=== PATIENT | male | born 1955 | race Caucasian/White ===

== ENCOUNTER 2020-10-11 19:03 | Emergency (ER) | payer BC ==
--- NOTE | 2020-10-11 19:28 | EDM.PDOC ---
ED HPI GENERAL MEDICAL PROBLEM - General Chief Complaint: CPR in Progress Stated Complaint: [facility] Time Seen by Provider: 10/11/20 19:03 Source of Information: Reports: EMS History Limitations: Reports: Other (cardiac arrest.) - History of Present Illness INITIAL COMMENTS - FREE TEXT/NARRATIVE: 65-year-old male presents to the ED with CPR in progress. The history suggest that he had come home from work at approximately 730 and 30 hours. He did not complain of any chest pain to his . She reports he has developed cold symptoms with sinus congestion over the last 48 hours. No notable cough or fever or chills reported. Patient went into the bathroom and heard him fall to the floor. This occurred at approximately 1810 hrs. When she attended him in the bathroom he was looking up at her and she thinks was making eye contact although he was never able to verbalize. She reports that he took a few gasps of air and this is when she called 911. Paramedics apparently were on scene within 3 to 4 minutes. They started CPR as he recognized that he was pulseless and not breathing. He was found to be in ventricular fibrillation and he required defibrillation x4. Unfortunately during this timeframe he slipped into asystole. Patient was intubated with good air entry to both lung zepeda on Ambu bag compression. Vitaly device in place. Arrival at the hospital was approximately 1753 hrs. It took a bit of time to get his name and therefore a delay in actually having a chart. I.e. he was pronounced before the chart was available. On examination good air entry to both lung zepeda on compression of the Ambu bag recognize. Tube in good position. Vitaly device was stopped and the patient was identified to be in asystole. Paramedics indicate that they had been working on them for 45 minutes. He had been in asystole for greater than 10 minutes. Decision made to call the code and time of is 1900 hrs. 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 The history however of nasal congestion for the last 2 days is suspicious for possible COVID-19 illness. A COVID-19 screen will be carried out on this patient so the family knows for sure whether or not he had underlying illness that may contribute to his sudden due to hypercoagulation. Studies suggest that he has chronic underlying hypertension and is not sure how compliant he was with medications. He has no history of diabetes. No history of alcoholism. No past history our charts are available from this fellow being seen in the ED prior. 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 Of appears to be obvious and there is no evidence of foul play. Family was not keen on pursuing an autopsy at this time. Cause of felt to be myocardial infarction with malignant arrhythmia causing sudden . Onset: Today, Sudden Onset Date: 10/11/20 Onset Time: 18:06 Duration: Minutes: Location: Reports: Other (Patient presents to the ED with CPR in progress.) Severity: Severe Improves with: Reports: None Worsens with: Reports: None Context: Reports: Other (Sudden loss of consciousness and fall to the floor in the bathroom at home. Identified to be pulseless and not breathing when paramedics arrived. Monitor revealed shockable rhythm with ventricular fibrillation. He did receive defibrillation x4 and was intubated. Patient then went into asystole and therefore Vitaly device was placed and patient transported to the hospital. It was estimated that he had been in asystole for between 12 and 16 minutes before arrival in the ED. Perhaps even longer.). Denies: Activity, Exercise, Lifting, Sick Contact, Trauma Associated Symptoms: Reports: Other (Sudden ) Treatments RN INTEGRITY: Reports: See EMS Report, Other (see below) (CPR in progress upon arrival as mentioned above. See the chief complaint.) Past Medical History Cardiovascular History: Reports: Hypertension (Chronic essential hypertension. reports that he was been on medication for about 10 years.) ED ROS GENERAL - Review of Systems Review Of Systems: Unable To Obtain Reason Not Obtained: Patient arrived in the ED with no pulse and no respirations . ED EXAM, CPR - Physical Exam Exam: See Below Limited By: Unresponsive General Appearance: Severe Distress, Other (Waxy /cyanotic discoloration base upper chest and extremities.) Eye Exam: Bilateral Eye: Other (Pupils were dilated to 7 mm and unresponsive to light in either eye.) Throat/Mouth: Other (Endotracheal tube in the oropharynx with good air entry to both lung zepeda on auscultation with Ambu bag compression) Head: Atraumatic, Normocephalic, Other (No outward signs of head or facial trauma.) Respiratory Chest: Other (No spontaneous respirations) Cardiovascular: Absent Heart Sounds, CPR In Progress. No: Pulse with Compression Extremities: Other (Few sacral cyanosis upper and lower extremities) Neurological: Unresponsive Skin Exam: Cool Course - Orders/Labs/Meds Labs: Laboratory Tests 10/11/20 Range/Units 19:10 SARS-CoV-2 RNA (YON) Negative (NEGATIVE) - Radiology Interpretation Free Text/Narrative:: 65-year-old male presents to the ED with CPR in progress. He had no spontaneous respirations and after the Vitaly device was stopped he was found to be in asystole with no spontaneous pulses. Good air entry appreciated both lung zepeda on Ambu bag compression indicating ET tube in good position. Patient went down at approximately 1805 hrs. with paramedics summoned at 1810 hrs. They arrived to the home within 3 to 4 minutes. They identified no spontaneous respirations and no pulse. CPR was started and monitor/defibrillator revealed malignant arrhythmia of ventricular fibrillation. Patient was apparently did undergo defibrillation x4. Unfortunately he drifted into asystole. He was intubated and Vitaly device placed in the home. He was transported to the hospital and arrived here at 1853 hrs. Examination revealed no spontaneous movement of his pupils to light with pupils fixed at 7 to 8 mm. Patient had no spontaneous respirations but ET tube felt clinic to be 8 to be good position with good air entry to both lung zepeda on Ambu bag compression. Vitaly device stopped patient was identified to be in asystole with no spontaneous return of pulses. Vitaly device was felt to have been in place for between 14 and 18 minutes. Patient was therefore pronounced at 1900 hrs. Diagnosis is likely acute myocardial infarction causing malignant arrhythmia with sudden . Mr. Cortez Davies hot wound spring production supervisor corner was contacted and the case discussed with him per nursing staff. Patient has no signs of foul play and family was not keen to pursue an autopsy at this time. 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 Due to history of nasal congestion x48 hours a COVID-19 screen will be done to rule out as this is a participating cause in the patient's due to hypercoagulopathy. Also the family needs to know if they may been exposed to COVID-19 illness. - Re-Assessments/Exams Free Text/Narrative Re-Assessment/Exam: 10/11/20 21:50: COVID-19 screen is negative. Nurse discussed the findings with the 's . She indicates that when she got home she found his cell phone open in the bathroom where he had been sitting. She states that she fell numerous inquiries on his phone about the 7 signs and symptoms of a stroke that the patient had been looking at today. This raises the possibility of a an acute cerebrovascular event such as ruptured aneurysm to have caused the patient's demise. Departure - Departure Time of Disposition: 19:00 Disposition: 20 Preliminary Cause of *Q: Cardiac Arrest Clinical Impression: Cardiac arrest - Discharge Information *PRESCRIPTION DRUG MONITORING PROGRAM REVIEWED*: Not Applicable *COPY OF PRESCRIPTION DRUG MONITORING REPORT IN PATIENT JORDAN: Not Applicable Referrals: PCP,None [Primary Care Provider] - Forms: ED Department Discharge Additional Instructions: Patient appears to have suffered sudden likely from left main coronary artery occlusion with malignant arrhythmia ventricular fibrillation identified upon healthcare market consultant arrival. He failed to respond to resuscitation efforts with defibrillation x4 and intubation on scene. Vitaly device applied and transported the hospital without return of any spontaneous pulse on examination and ET tube felt to be in good position with good air entry to both lung zepeda on Ambu bag compression. Patient was in asystole upon arrival and is felt to be in full cardiac arrest with asystole for between 14 and 18 minutes. Therefore further resuscitation efforts were felt to be futile. Patient was pronounced at 1900 hrs. 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 Cortez Sanders currently acting corner from [facility]. Less likely would be a cerebrovascular accident which was obviously catastrophic.
== END 2020-10-12 00:05 | disposition expired ==
LOC: JD.ED 19:03
DX: I46.9 Cardiac arrest, cause unspecified (principal)
CPT/HCPCS: 92950; 99283; 99285-25; U0002